=== PATIENT | male | born 1965 | race Two or more races ===

== ENCOUNTER 2022-08-28 22:31 | Emergency (ER) | payer OTHER ==
[2022-08-28 22:41] VITALS: BMI 23.6
[2022-08-28] MEDS ORDERED: methylPREDNISolone NA SUCC 125 MG/2 ML VIAL IVPUSH ONE (22:53)
[2022-08-28] MEDS ORDERED: FAMOTIDINE 20 MG/50 ML IVPB 20 MG/50 ML MG IVPB ONE ×2 (22:53→23:31)
[2022-08-28] MEDS ORDERED: ALBUTEROL SO4 HFA INHALER IH ONE ×2 (23:10→23:30)
[2022-08-28] MEDS ORDERED: methylPREDNISolone NA SUCC 125 MG/2 ML VIAL ONE (23:30)
[2022-08-29 03:02] VITALS: BP 108/59; PULSE 57; RESP 20; TEMP 97.5
== END 2022-08-29 03:50 | disposition home or self-care (01) ==
LOC: JER 22:31
PROC: 3E033GC Introduction of Other Therapeutic Substance into Peripheral Vein, Percutaneous Approach (ICD-10-PCS; principal; 2022-08-28)
PROC: 3E033GC Introduction of Other Therapeutic Substance into Peripheral Vein, Percutaneous Approach (ICD-10-PCS; 2022-08-28)
PROC: 3E0F7GC Introduction of Other Therapeutic Substance into Respiratory Tract, Via Natural or Artificial Opening (ICD-10-PCS; 2022-08-28)
DX: T78.40XA Allergy, unspecified, initial encounter (principal)
CPT/HCPCS: 93005; 93010; 99284-25